=== PATIENT | female | born 1975 | race Caucasian/White ===

== ENCOUNTER 2017-03-14 20:14 | Emergency (ER) | payer BC, OTHER ==
[~2017-03-14] VITALS: Ht 154.9 cm; Wt 50.0 kg
[~2017-03-14 20:14] MED LIST: LEXA10TA PO
[2017-03-14 20:55] VITALS: BP 144/76; PULSE 133; RESP 16; TEMP 99.2; O2SAT 99
[2017-03-14] MEDS ORDERED: SODIUM CHLOR 0.9% 1000 ML INJ 1,000 ML IV ONE (21:00)
[2017-03-14] MEDS ORDERED: THIAMINE INJ 100 MG in SODIUM CHLORIDE 0.9% INJ 100 ML IV ONE (21:00)
--- NOTE | 2017-03-14 21:11 | PD ---
HPI Chief Complaint: Psychiatric Symptoms Time Seen by Provider: 21:07 Travel History International Travel<30 days: No Contact w/Intl Traveler<30days: No Traveled to known affect area: No History of Present Illness HPI 41-year-old white female alcoholic presents to emergency department by PD under a [place] act. The patient states that she is from [place]. She typically lives with her boyfriend. She had been drinking a large amount of alcohol. Police found her heavily intoxicated. She had defecated on herself. She was unable to care for herself due to her intoxication. She is brought to the hospital for treatment. The patient here denies any suicidal homicidal ideation. She states that she is merely intoxicated. She does not want to go back to her boyfriend's house. She does not want to call her parents in [place]. She would like to sleep.. She states that she feels dehydrated and would like some IV fluids and something to drink. She denies any trauma. She denies . She denies other illicit substance abuse. PFS Past Medical History Narrative Medical Anxiety, depression, chronic alcohol abuse Autoimmune Disease: No Anxiety: Yes (Per pt.) Depression: Yes (Per pt.) Cancer: No Cardiovascular Problems: No Diabetes: No Diminished Hearing: No Endocrine: No Gastrointestinal Disorders: No Glaucoma: No Genitourinary: No Hepatitis: No Hiatal Hernia: No Hypertension: No Immune Disorder: No Implanted Vascular Access Dvce: No Musculoskeletal: No Neurologic: No Psychiatric: Yes Reproductive: No Respiratory: No Immunizations Current: Yes Thyroid Disease: No Tetanus Vaccination: < 5 Years ?: Not : 3 Para: 2 Miscarriage: 1 Dilation and Curettage (D&C): Yes Tubal Ligation: Yes Past Surgical History Narrative Surgical , tubal ligation Body Medical Devices: NONE Section: Yes Gynecologic Surgery: Yes (Csection x1; Tubal Ligation) Pacemaker: No Other Surgery: Yes Social History Alcohol Use: Yes Tobacco Use: Yes (1 pack every three days) Substance Use: Yes (alcohol) Allergies-Medications (Allergen,Severity, Reaction): Coded Allergies: Cat Dander (Verified Allergy, Severe, 03/14/17) PATIENT STATES SHE IS NOT ALLERGIC TO CAT DANDER. SHE HAS TWO CATS AT HOME. Reported Meds & Prescriptions Reported Meds & Active Scripts Active No Active Prescriptions or Reported Medications Review of Systems ROS Limitations: Intoxication Except as stated in HPI: all other systems reviewed are Neg Physical Exam Narrative GENERAL: Well-nourished, well-developed patient. Very ataxic and appears heavily intoxicated she is disheveled. She does have feces on her skin. SKIN: Warm and dry. HEAD: Normocephalic and atraumatic. EYES: No scleral icterus. No injection or drainage. ENT: No nasal drainage noted. Mucous membranes pink. Airway patent. NECK: Supple, trachea midline. Moves head freely without obvious discomfort. CARDIOVASCULAR: Regular rate and rhythm without murmurs, gallops, or rubs. RESPIRATORY: Breath sounds equal bilaterally. No accessory muscle use. GASTROINTESTINAL: Abdomen soft, non-tender, nondistended. EXTREMITIES: No cyanosis or edema. BACK: Nontender without obvious deformity. No CVA tenderness. NEURO: Patient is alert and oriented. Ataxic and generalized weakness due to alcohol. Her speech is very slurred. PSYCH: No delusions. No auditory or visual hallucinations. Data Data Last Documented VS Vital Signs Date Time Temp Pulse Resp B/P Pulse Ox O2 Delivery O2 Flow Rate FiO2 03/14/17 20:58 130 03/14/17 20:55 99.2 16 144/76 99 Orders Comprehensive Metabolic Panel (03/14/17 20:46) Ed Urine Pregnancytest Poc (03/14/17 20:46) Iv Access Insert/Monitor (03/14/17 20:46) Drug Screen, Random Urine (03/14/17 20:46) Alcohol (Ethanol) (03/14/17 20:46) Sodium Chlor 0.9% 1000 Ml Inj (Ns 1000 M (03/14/17 21:00) Thiamine Inj (Thiamine Inj) (03/14/17 21:00) Haloperidol Inj (Haldol Inj) (03/14/17 22:30) Lorazepam Inj (Ativan Inj) (03/15/17 05:15) Labs Laboratory Tests Test 03/14/17 21:00 Sodium Level 135 MEQ/L Potassium Level 3.8 MEQ/L Chloride Level 95 MEQ/L Carbon Dioxide Level 22.2 MEQ/L Anion Gap 18 MEQ/L Blood Urea Nitrogen 20 MG/DL Creatinine 0.65 MG/DL Estimat Glomerular Filtration 101 ML/MIN Rate Random Glucose 135 MG/DL Calcium Level 7.6 MG/DL Total Bilirubin 0.6 MG/DL Aspartate Amino Transf 61 U/L (AST/SGOT) Alanine Aminotransferase 58 U/L (ALT/SGPT) Alkaline Phosphatase 85 U/L Total Protein 7.6 GM/DL Albumin 3.8 GM/DL Ethyl Alcohol Level 396 MG/DL MDM Medical Decision Making Medical Screen Exam Complete: Yes Emergency Medical Condition: Yes Medical Record Reviewed: Yes Interpretation(s) Laboratory Tests Test 03/14/17 21:00 Sodium Level 135 MEQ/L Potassium Level 3.8 MEQ/L Chloride Level 95 MEQ/L Carbon Dioxide Level 22.2 MEQ/L Anion Gap 18 MEQ/L Blood Urea Nitrogen 20 MG/DL Creatinine 0.65 MG/DL Estimat Glomerular Filtration 101 ML/MIN Rate Random Glucose 135 MG/DL Calcium Level 7.6 MG/DL Total Bilirubin 0.6 MG/DL Aspartate Amino Transf 61 U/L (AST/SGOT) Alanine Aminotransferase 58 U/L (ALT/SGPT) Alkaline Phosphatase 85 U/L Total Protein 7.6 GM/DL Albumin 3.8 GM/DL Ethyl Alcohol Level 396 MG/DL Differential Diagnosis Differential diagnoses: Alcohol intoxication, substance abuse, electrolyte abnormality, malingering Narrative Course IV access is obtained. Routine laboratory tests and urinalysis. Patient is given 100 mg of thiamine IV and 1 L bolus of saline. The patient has repetitively and up out of bed she is becoming a barrier to her own care. There is concerned that she may fall due to her alcohol intoxication. She is becoming belligerent with the staff. The patient is medicated with Haldol 5 mg IM. This is alcohol intoxication, [place] act The patient will be allowed to sleep it off here in the ER. Patient's alcohol is nearly 400. At 050 6 AM the patient is up and ambulatory. She is becoming tremulous. The patient appears to have been early withdrawal symptoms although her alcohol still over 150 Diagnosis Primary Impression: Alcohol intoxication Qualified Code: F10.920 - Alcoholic intoxication without complication Additional Impression: [place] act Patient Instructions: General Instructions Additional Instructions: Rest. Increase fluids. Avoid alcohol. Avoid illegal substances. Follow-up with [facility] for detox. Do not operate a car or any heavy machinery under the influence of alcohol or drugs. Follow-up with a medical doctor this week. Return to the ER for emergencies Med/Other Pt SpecificInfo: No Meds Exist/No RX given Scripts No Active Prescriptions or Reported Meds Disposition: 01 DISCHARGE HOME Condition: Jhoan Da Silva Mar 14, 2017 21:11
[2017-03-14 21:41] LABS: BLOOD UREA NITROGEN 20 MG/DL (7-18)
[2017-03-14 22:06] LABS: ALKALINE PHOSPHATASE 85 U/L (45-117); ALT (GPT) 58 U/L (10-53); ANION GAP 18 MEQ/L (5-15); AST (GOT) 61 U/L (15-37); BICARBONATE 22.2 MEQ/L (21.0-32.0); CHLORIDE 95 MEQ/L (98-107); GLOMERULAR FILTRATION RATE 101 ML/MIN (>89); POTASSIUM 3.8 MEQ/L (3.5-5.1); SODIUM (NA) 135 MEQ/L (136-145); TOTAL BILIRUBIN ADULT 0.6 MG/DL (0.2-1.0)
[2017-03-14 22:09] LABS: ALCOHOL 396 MG/DL (0-5)
[2017-03-14] MEDS ORDERED: HALOPERIDOL LACTATE 5 MG/ML AMP IM ONE (22:30)
[2017-03-15 05:07] VITALS: BP 147/82; PULSE 140; RESP 18; O2SAT 95
[2017-03-15] MEDS ORDERED: LORazepam 2 MG/ML VIAL IM ONE (05:15)
== END 2017-03-15 06:44 | disposition home or self-care (01) ==
LOC: NEPD 20:14
DX: F10.129 Alcohol abuse with intoxication, unspecified (principal); F41.9 Anxiety disorder, unspecified; F32.9 Major depressive disorder, single episode, unspecified; F17.200 Nicotine dependence, unspecified, uncomplicated
CPT/HCPCS: 80053; 80307; 84703; 96372; 96374; 99284; J1630; J2060; J3411; J7030

== ENCOUNTER 2017-03-17 20:55 | Emergency (ER) | payer BC, OTHER ==
[~2017-03-17] VITALS: Ht 157.5 cm; Wt 45.5 kg
[2017-03-17 21:05] VITALS: BP 122/78; PULSE 108; RESP 20; TEMP 98.2; O2SAT 96
[2017-03-17] MEDS ORDERED: LEXA20TA PO (21:10)
[2017-03-17] MEDS ORDERED: SODIUM CHLOR 0.9% 1000 ML INJ 1,000 ML IV ONE (21:15)
--- NOTE | 2017-03-17 21:19 | PD ---
HPI Chief Complaint: Alcohol/Drug Intoxication Time Seen by Provider: 21:11 Travel History International Travel<30 days: No Contact w/Intl Traveler<30days: No Traveled to known affect area: No History of Present Illness HPI 41-year-old female brought in by ambulance from home for alcohol intoxication. Apparently the patient was unconscious at home. Triage note states that the patient is known for drinking rubbing alcohol. The patient tells me she has been drinking vodka throughout the day today. She adamantly denies drinking rubbing alcohol. She is also denying illicit drug use. She tells me that she feels very anxious. She denies suicidal ideation. Chart review shows that the patient was here 3 days ago for the same, and during that visit she required chemical sedation for becoming agitated. PFSH Past Medical History Autoimmune Disease: No Anxiety: Yes (Per pt.) Depression: Yes (Per pt.) Cancer: No Cardiovascular Problems: No Diabetes: No Diminished Hearing: No Endocrine: No Gastrointestinal Disorders: No Glaucoma: No Genitourinary: No Hepatitis: No Hiatal Hernia: No Hypertension: No Immune Disorder: No Implanted Vascular Access Dvce: No Musculoskeletal: No Neurologic: No Psychiatric: Yes Reproductive: No Respiratory: No Immunizations Current: Yes Thyroid Disease: No Influenza Vaccination: No ?: Not LMP: 03/08/2017 : 3 Para: 2 Miscarriage: 1 Dilation and Curettage (D&C): Yes Tubal Ligation: Yes Past Surgical History Body Medical Devices: NONE Section: Yes Gynecologic Surgery: Yes (Csection x1; Tubal Ligation) Pacemaker: No Other Surgery: Yes Social History Alcohol Use: Yes Tobacco Use: Yes (1 pack every three days) Substance Use: No Allergies-Medications (Allergen,Severity, Reaction): Coded Allergies: Cat Dander (Verified Allergy, Severe, 03/14/17) PATIENT STATES SHE IS NOT ALLERGIC TO CAT DANDER. SHE HAS TWO CATS AT HOME. Reported Meds & Prescriptions Reported Meds & Active Scripts Active Reported Lexapro (Escitalopram Oxalate) 20 Mg Tab 20 Mg PO DAILY Review of Systems Except as stated in HPI: all other systems reviewed are Neg Physical Exam Narrative GENERAL: Awake, alert, appears intoxicated, no apparent distress. SKIN: Focused skin assessment warm/dry. HEAD: Atraumatic. Normocephalic. EYES: Pupils equal and round. No scleral icterus. No injection or drainage. ENT: Mucous membranes pink and dry. NECK: Trachea midline. No JVD. No nuchal rigidity. CARDIOVASCULAR: Regular rate and rhythm. RESPIRATORY: No accessory muscle use. Clear to auscultation. Breath sounds equal bilaterally. GASTROINTESTINAL: Abdomen soft, non-tender, nondistended. MUSCULOSKELETAL: No obvious deformities. No clubbing. No cyanosis. No edema. NEUROLOGICAL: Awake and alert. No obvious cranial nerve deficits. Motor grossly within normal limits. Normal speech. No focal deficits. PSYCHIATRIC: Appears intoxicated. Data Data Last Documented VS Vital Signs Date Time Temp Pulse Resp B/P Pulse Ox O2 Delivery O2 Flow Rate FiO2 03/17/17 21:05 98.2 108 20 122/78 96 Orders Complete Blood Count With Diff (03/17/17 21:12) Comprehensive Metabolic Panel (03/17/17 21:12) Beta Hcg (Quant/Titer) (03/17/17 21:12) Drug Screen, Random Urine (03/17/17 21:12) Alcohol (Ethanol) (03/17/17 21:12) Salicylates (Aspirin) (03/17/17 21:12) Tylenol (Acetaminophen) (03/17/17 21:12) Sodium Chlor 0.9% 1000 Ml Inj (Ns 1000 M (03/17/17 21:15) Osmolality,Serum (03/17/17 21:12) Thiamine Inj (Thiamine Inj) (03/17/17 21:30) Calcium Gluconate Inj (Calcium Gluconate (03/17/17 23:30) Labs Laboratory Tests Test 03/17/17 21:25 White Blood Count 4.2 TH/MM3 Red Blood Count 3.74 MIL/MM3 Hemoglobin 12.0 GM/DL Hematocrit 34.9 % Mean Corpuscular Volume 93.4 FL Mean Corpuscular Hemoglobin 32.1 PG Mean Corpuscular Hemoglobin 34.4 % Concent Red Cell Distribution Width 13.0 % Platelet Count 108 TH/MM3 Mean Platelet Volume 7.9 FL Neutrophils (%) (Auto) 65.1 % Lymphocytes (%) (Auto) 29.7 % Monocytes (%) (Auto) 4.2 % Eosinophils (%) (Auto) 0.3 % Basophils (%) (Auto) 0.7 % Neutrophils # (Auto) 2.8 TH/MM3 Lymphocytes # (Auto) 1.3 TH/MM3 Monocytes # (Auto) 0.2 TH/MM3 Eosinophils # (Auto) 0.0 TH/MM3 Basophils # (Auto) 0.0 TH/MM3 CBC Comment DIFF FINAL Differential Comment Sodium Level 140 MEQ/L Potassium Level 3.4 MEQ/L Chloride Level 106 MEQ/L Carbon Dioxide Level 24.8 MEQ/L Anion Gap 9 MEQ/L Blood Urea Nitrogen 11 MG/DL Creatinine 0.40 MG/DL Estimat Glomerular Filtration 178 ML/MIN Rate Random Glucose 99 MG/DL Serum Osmolality 406 MOSM/KG Calcium Level 6.2 MG/DL Protein Corrected Calcium 6.7 MG/DL Total Bilirubin 0.2 MG/DL Aspartate Amino Transf 96 U/L (AST/SGOT) Alanine Aminotransferase 70 U/L (ALT/SGPT) Alkaline Phosphatase 62 U/L Total Protein 6.1 GM/DL Albumin 2.9 GM/DL Human Chorionic Gonadotropin, LESS THAN 1 Quant MIU/ML Salicylates Level LESS THAN 1.7 MG/DL Acetaminophen Level LESS THAN 2.0 MCG/ML Ethyl Alcohol Level 419 MG/DL [facility] Medical Decision Making Medical Screen Exam Complete: Yes Emergency Medical Condition: Yes Medical Record Reviewed: Yes Differential Diagnosis Alcohol intoxication, drug intoxication, metabolic abnormality, intracranial abnormality less likely Narrative Course Vital signs reviewed. CBC is remarkable for platelets of 108, otherwise unremarkable. CMP is remarkable for calcium 6.2, protein cracked a calcium 6.7, AST 96, ALT 70. Serum osmolality is measured at 406 and calculated at 403 with a gap of 3. Alcohol level was 419. Calcium replaced parenterally. Patient was also given a dose of IV thiamine and a liter of normal saline IV. She will be allowed to sleep off her intoxication in the emergency department. Diagnosis Primary Impression: Alcohol intoxication Qualified Code: F10.920 - Alcoholic intoxication without complication Additional Impression: Hypocalcemia Referrals: [facility] Disposition: 01 DISCHARGE HOME Condition: Stable Solis Grigsby MD Mar 17, 2017 21:19
[2017-03-17] MEDS ORDERED: THIAMINE INJ 100 MG in SODIUM CHLORIDE 0.9% INJ 100 ML IV ONE (21:30)
[2017-03-17 21:43] LABS: AUTOMATED NEUTROPHIL # 2.8 TH/MM3 (1.8-7.7); BASOPHIL % 0.7 % (0.0-2.0); EOSINOPHIL % 0.3 % (0.0-4.0); HEMATOCRIT 34.9 % (35.0-46.0); HEMO FLAGS DIFF FINAL; LYMPH % 29.7 % (9.0-44.0); LYMPHOCYTE # 1.3 TH/MM3 (1.0-4.8); MEAN CELL VOLUME 93.4 FL (80.0-100.0); MEAN CORPUSCULAR HEMOGLOBIN 32.1 PG (27.0-34.0); MEAN CORPUSCULAR HGB CONC 34.4 % (32.0-36.0); MONO % 4.2 % (0.0-8.0); NEUT % 65.1 % (16.0-70.0); PLATELET COUNT 108 TH/MM3 (150-450); RED BLOOD COUNT 3.74 MIL/MM3 (4.00-5.30); WHITE BLOOD COUNT 4.2 TH/MM3 (4.0-11.0)
[2017-03-17 22:08] LABS: ACETAMINOPHEN LESS THAN 2.0 MCG/ML (10.0-30.0); ALKALINE PHOSPHATASE 62 U/L (45-117); ALT (GPT) 70 U/L (10-53); ANION GAP 9 MEQ/L (5-15); AST (GOT) 96 U/L (15-37); BETA HCG QUANT LESS THAN 1 MIU/ML (0-5); BICARBONATE 24.8 MEQ/L (21.0-32.0); BLOOD UREA NITROGEN 11 MG/DL (7-18); CHLORIDE 106 MEQ/L (98-107); GLOMERULAR FILTRATION RATE 178 ML/MIN (>89); POTASSIUM 3.4 MEQ/L (3.5-5.1); SODIUM (NA) 140 MEQ/L (136-145); TOTAL BILIRUBIN ADULT 0.2 MG/DL (0.2-1.0)
[2017-03-17 22:10] LABS: ALCOHOL 419 MG/DL (0-5); CALCIUM-PROTEIN CORRECTED 6.7 MG/DL (8.5-10.1)
[2017-03-17] MEDS ORDERED: CALCIUM GLUCONATE INJ 1 GM in DEXTROSE 5% IN WATER 100ML INJ 100 ML IV ONE ×2 (23:30)
[2017-03-18 03:08] VITALS: BP 137/80
== END 2017-03-18 03:16 | disposition home or self-care (01) ==
LOC: NEPD 20:55
DX: F10.920 Alcohol use, unspecified with intoxication, uncomplicated (principal); E83.51 Hypocalcemia; F17.200 Nicotine dependence, unspecified, uncomplicated; Z86.59 Personal history of other mental and behavioral disorders; Z79.899 Other long term (current) drug therapy
CPT/HCPCS: 80053; 80307; 83930; 84702; 85025; 96365; 99284; J0610; J3411; J7030

== ENCOUNTER 2017-12-22 22:04 | Emergency (ER) | payer BC, OTHER ==
[~2017-12-22] VITALS: Ht 157.5 cm; Wt 52.0 kg
[~2017-12-22 22:04] MED LIST changes: -LEXA10TA PO; +LEXA20TA PO
[2017-12-22 22:09] VITALS: BP 123/65; PULSE 128; RESP 20; TEMP 98.7; O2SAT 96
[2017-12-22] MEDS ORDERED: LORazepam 1 MG TAB PO ONE (22:30)
[2017-12-22] MEDS ORDERED: CHLO25CA9 PO (22:37)
--- NOTE | 2017-12-22 22:38 | PD ---
HPI Chief Complaint: Anxiety Time Seen by Provider: 22:19 Travel History International Travel<30 days: No Contact w/Intl Traveler<30days: No Traveled to known affect area: No History of Present Illness HPI The patient is a 42-year-old female who presents to the emergency department for anxiety. The patient states she has a history of anxiety for which he takes Ativan and Klonopin, also has a history of alcohol abuse and alcohol withdrawal. The patient had an alcohol withdrawal seizure last , was seen at [facility] in [place], [place]. The patient notes she has some residual bruising from that seizure, but was evaluated at another emergency department and was doing well until earlier today when she became anxious. The patient did drink approximately 8 small bottles of wine earlier today. She does complain of feeling anxious, however, states her boyfriend took her Klonopin away and she is afraid she may have an alcohol withdrawal seizure. The patient states when she was evaluated at [facility] in [place], [place], she had hypokalemia and hyponatremia at that time. She states they were corrected prior to her discharge. PFSH Past Medical History Autoimmune Disease: No Anxiety: Yes (Per pt.) Depression: Yes (Per pt.) Cancer: No Cardiovascular Problems: No Diabetes: No Diminished Hearing: No Endocrine: No Gastrointestinal Disorders: No Glaucoma: No Genitourinary: No Hepatitis: No Hiatal Hernia: No Hypertension: No Immune Disorder: No Implanted Vascular Access Dvce: No Musculoskeletal: No Neurologic: No Psychiatric: Yes Reproductive: No Respiratory: No Immunizations Current: Yes Thyroid Disease: No ?: Not LMP: 11/15/17 : 3 Para: 2 Miscarriage: 1 Dilation and Curettage (D&C): Yes Tubal Ligation: Yes Past Surgical History Body Medical Devices: NONE Section: Yes Gynecologic Surgery: Yes (Csection x1; Tubal Ligation) Pacemaker: No Other Surgery: Yes Social History Alcohol Use: Yes Tobacco Use: Yes (1 pack every three days) Substance Use: No Allergies-Medications (Allergen,Severity, Reaction): Coded Allergies: cat dander (Verified Allergy, Severe, 12/22/17) PATIENT STATES SHE IS NOT ALLERGIC TO CAT DANDER. SHE HAS TWO CATS AT HOME. Reported Meds & Prescriptions Reported Meds & Active Scripts Active Reported Lexapro (Escitalopram Oxalate) 20 Mg Tab 20 Mg PO DAILY Review of Systems Except as stated in HPI: all other systems reviewed are Neg HENT: No: Lightheadedness Cardiovascular: No: Chest Pain or Discomfort Respiratory: No: Shortness of Breath Gastrointestinal: No: Nausea, Vomiting, Abdominal Pain Psychiatric: Positive: Anxiety, Substance Abuse (Alcohol abuse) Physical Exam Narrative GENERAL: Awake, alert, somewhat anxious 42-year-old female who appears her stated age and is in no acute respiratory distress. SKIN: Focused skin assessment warm/dry. Old appearing ecchymosis on the left aspect of the face as well as over the right arm. HEAD: Atraumatic. Normocephalic. EYES: Pupils equal and round. 3 mm bilateral and reactive. ENT: No nasal bleeding or discharge. Mucous membranes pink and moist. NECK: Trachea midline. No JVD. CARDIOVASCULAR: Regular, tachycardic with a heart rate of 110. RESPIRATORY: No accessory muscle use. Clear to auscultation. Breath sounds equal bilaterally. GASTROINTESTINAL: Abdomen soft, non-tender, nondistended. MUSCULOSKELETAL: No obvious deformities. No clubbing. No cyanosis. No edema. NEUROLOGICAL: Awake and alert. No obvious cranial nerve deficits. Motor grossly within normal limits. Normal speech. Nonfocal. PSYCHIATRIC: Anxious. Data Data Last Documented VS Vital Signs Date Time Temp Pulse Resp B/P (MAP) Pulse Ox O2 Delivery O2 Flow Rate FiO2 12/22/17 22:20 18 12/22/17 22:09 98.7 128 123/65 (84) 96 Orders Orders Lorazepam (Ativan) (12/22/17 22:30) [facility] Medical Decision Making Medical Screen Exam Complete: Yes Emergency Medical Condition: Yes Medical Record Reviewed: Yes Differential Diagnosis Differential diagnosis includes anxiety, alcohol withdrawal, dehydration, electrolyte abnormality, alcohol intoxication. Narrative Course I had a discussion with the patient regarding IV, IV fluids, Ativan, and evaluation of her magnesium, potassium, and her sodium level. However, the patient states she does not want an IV and wants no laboratory evaluation performed. The patient is awake, alert, oriented 5 and appears to be able to make a reasonable decision. After discussion with the patient it was agreed we would place her on a benzodiazepine, Librium, for possible alcohol withdrawal. She was administered Ativan 1 mg orally and will be discharged home on a taper dose of Librium. Diagnosis Primary Impression: Anxiety Additional Impression: Alcohol withdrawal Qualified Codes: F10.230 - Alcohol dependence with withdrawal, uncomplicated Patient Instructions: General Instructions Additional Instructions: Librium as directed. Avoid alcohol. Follow-up with your primary physician. Return if symptoms worsen or progress. Med/Other Pt SpecificInfo: Prescription(s) given Scripts Chlordiazepoxide HCl (Chlordiazepoxide HCl) 25 Mg Capsule 1 TAB PO DIRECTED, #20 Prov: Jose Rasmussen MD 12/22/17 Disposition: DISCHARGE HOME Condition: Stable Jose Rasmussen MD December 22, 2017 22:38
== END 2017-12-22 22:50 | disposition home or self-care (01) ==
LOC: PHED 22:04
DX: F10.230 Alcohol dependence with withdrawal, uncomplicated (principal); F17.210 Nicotine dependence, cigarettes, uncomplicated
CPT/HCPCS: 99283